=== PATIENT | female | born 1955 | race Caucasian/White ===

== ENCOUNTER 2017-05-02 01:28 | Inpatient (IN) | payer MEDICAID ==
[2017-05-02] MEDS ORDERED: methylPREDNISolone SOD SUCC 125 MG/2 ML VIAL IVP ONE (01:34)
[2017-05-02] MEDS ORDERED: NS 500 ML IV ONE (01:34)
[2017-05-02] MEDS ORDERED: IPRATROPIUM/ALBUTEROL 3 ML DEYVIAL IH ONE (01:34)
--- NOTE | 2017-05-02 01:38 | EDPHY ---
H & P HPI/ROS: HPI CHIEF COMPLAINT: Shortness of breath, anxiety HISTORY OF PRESENT ILLNESS: Patient is a 62-year-old female, she resides at [facility], she presents emergency room by EMS for shortness of breath. EMS reports when they arrived to [facility] to evaluate her her room air saturation was in the low 80s. She was tachypneic and wheezing and had rhonchorous breath sounds. She was placed on 4 L nasal cannula as well as receiving a 6 L DuoNeb and her O2 sat came to 92%. Upon arrival to the emergency room she is in respiratory distress with tachypnea , her room air saturation is 68% she does complain of shortness of breath, anxiety and chest discomfort. Of note she does arrive from [facility] the DNR. Past Medical History: COPD 2 L nasal cannula at baseline, anxiety, CVA, obesity Past Surgical History: No recent surgery. Social History: Resides at [facility]. She denies current use of tobacco drugs or alcohol. Family History: Noncontributory ROS REVIEW OF SYSTEMS: A comprehensive 10 point review of systems is otherwise negative aside from elements mentioned in the history of present illness. Exam Constitutional respiratory distress, obese, triage nursing summary reviewed, vital signs reviewed, awake/alert. Initial room air saturation 60%. Eyes normal conjunctivae and sclera, EOMI, PERRLA. HENT normal inspection, atraumatic, moist mucus membranes, no epistaxis, neck supple/ no meningismus, no raccoon eyes. Respiratory respiratory distress, tachypnea, kidney in the 30s. decreased breath sounds bilaterally, audible wheezing bilaterally Cardiovascular tachycardia , regular rhythm, no murmur, no edema, distal pulses normal. Gastrointestinal soft, non-tender, no rebound, no guarding, normal bowel sounds, no distension, no pulsatile mass. Genitourinary no CVA tenderness. Musculoskeletal no midline vertebral tenderness, full range of motion, no calf swelling, no tenderness of extremities, no meningismus, good pulses, neurovascularly intact. Skin pink, warm, & dry, no rash, skin atraumatic. Neurologic awake, alert and oriented x 3, AAOx3, moves all 4 extremities equally, motor intact, sensory intact, CN II-XII intact, normal cerebellar, normal vision, normal speech. Psychiatric normal mood/affect. Heme/Lymph/Immune no lymphadenopathy. 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 Re-evaluate. Blood cultures. Lactic acid. Re-evaluation: 0223: Patient is feeling much better after DuoNeb breathing treatment. She remains on oxygen at 4-5 L nasal cannula. She is tearful. She denies chest pain. It is noted her D-dimer is positive. In the setting of profound hypoxia 60% room air saturation with positive D-dimer will proceed with CT angiogram of her chest her creatinine is normal. Reason for CT angiogram of her chest rule out pulmonary embolism. However clinically most likely having a COPD exacerbation. She has received IV Levaquin, IV steroids, DuoNeb breathing treatment. She will be admitted to the hospitalist service for COPD exacerbation. 0226AM: I did re-evaluate her she is no longer in respiratory distress she is anxious but resting. I do feel that she is safe for admission to PCU. Spoke with Dr. Alfaro who agrees to admit this patient. Final diagnosis COPD exacerbation. 0323AM: This patient's CT angiogram of the chest shows no pulmonary embolism however there is patchy pneumonia, bronchial wall thickening consistent with bronchitis, and additionally in the right lung possible fungal infection. Will relate the CT scan findings to the hospitalist service. Patient did receive blood cultures here and IV Levaquin. She is afebrile. But profoundly hypoxic off oxygen. 0332: Additionally Dr. Boo Ray updated me about the patient CT angiogram when the scan through a little bit into the abdomen they can see adrenal masses and possibly a mass on her right liver. Recommend CT abdomen pelvis inpatient. Do not recommend a CT scan abdomen pelvis with contrast at this time after the CT angiogram wait until she clears the contrast and then in the hospital get CT abdomen pelvis IV contrast. I have updated the hospitalist service. Source: Patient, EMS Constitutional: Initial Vital Signs O2 Sat (%) 95 05/02/17 01:35 O2 Delivery Mode Nasal Cannula O2 (L/minute) 5 Allergies/Adverse Reactions: heparin Allergy (Verified 05/02/17 01:39) Home Medications: Medication Instructions Recorded Acetaminophen [Tylenol ES 500 mg 1,000 mg PO Q8H PRN 05/02/17 (*)] Atorvastatin Calcium [Lipitor 20 20 mg PO DAILY 05/02/17 mg (*)] Budesonide [Budesonide 0.5MG/2Ml 0.5 mg IH BID 05/02/17 Neb (*)] Clopidogrel Bisulfate [Plavix (*)] 75 mg PO DAILY 05/02/17 Escitalopram Oxalate [Lexapro] 20 mg PO DAILY 05/02/17 Formoterol Fumarate 05/02/17 Hydrocodone/Acetaminophen [[place] 1 each PO Q4 PRN 05/02/17 5/325 (*)] Ipratropium/Albuterol [Duoneb (*)] 3 ml IH Q4H PRN 05/02/17 Ipratropium/Albuterol [Duoneb (*)] 3 ml IH Q6H 05/02/17 LORazepam [Ativan (*)] 0.5 mg PO BID 05/02/17 LORazepam [Ativan (*)] 0.5 mg PO BID PRN 05/02/17 LORazepam [Ativan (*)] 0.5 mg PO DAILY 05/02/17 Miconazole Nitrate [Zeasorb-AF 1 aretha TP BID 05/02/17 Powder] Nicotine [Nicoderm Cq 14 mg (*)] 14 mg TD DAILY 05/02/17 Ondansetron Odt [Zofran Odt 4 mg 4 mg PO Q4H PRN 05/02/17 (*)] Perforomist 2 ml NEB BID 05/02/17 Potassium Chloride [Klor-Con M20] 20 meq PO DAILY 05/02/17 Rivaroxaban [Xarelto 10mg (*)] 10 mg PO DAILY 05/02/17 fentaNYL [Duragesic 25 MCG Patch 25 mcg TD Q72H 05/02/17 (*)] Medical Decision Making - Diagnostics Imaging Results: Imaging Impressions Chest/Thorax CTA 05/02/17 02:21 Impression: 1. No evidence of thrombopulmonary embolic disease. 2. Severe underlying bronchitis. Bronchial plugging in the right lower lobe. 3. Low-attenuation branching tubular abnormality in the right lower lobe. This could be secondary to allergic bronchopulmonary aspergillosis, although typical findings of underlying bronchiectasis are not visualized. Another differential consideration could be bronchial atresia. Low-attenuation mass cannot be excluded, therefore, recommend a short-term follow up and pulmonary consultation. Right hilar and subcarinal lymphadenopathy. 4. Right upper lobe and left lower lobe pneumonia. 5. Mild cardiomegaly. Mild pericardial effusion. 6. Enlarged bilateral adrenal glands. 7. 2.7 cm mass at the inferior posterior margin of the liver of unknown etiology , incompletely imaged. Recommend dedicated CT of the abdomen and pelvis for further evaluation. Results called and discussed with Luis Alberto Ladd MD, on 05/02/2017 0334 hours. Final interpretation concurs with initial preliminary medical cost consultant radiologist impression. - Data Points Laboratory Results: Laboratory Results 05/02/17 01:25 05/02/17 01:25 Microbiology Results: MICROBIOLOGY 05/02/17 01:48 Nasal, Sinus - Swab Respiratory Panel (PCR) - Final No Organism Detected Medications Given: Acetaminophen (Tylenol) 1,000 mg PO Q8H PRN PRN Reason: Pain, Mild Stop: 10/29/17 14:19 Last Admin: 05/02/17 19:04 Dose: 1,000 mg Albuterol/Ipratropium (Duoneb) 3 ml IH QID SILAS Stop: 10/29/17 05:59 Last Admin: 05/02/17 19:48 Dose: 3 ml Budesonide (Budesonide 0.5mg/2ml Neb) 0.5 mg IH BID SILAS Stop: 10/29/17 20:59 Last Admin: 05/02/17 19:48 Dose: 0.5 mg Guaifenesin (Mucinex) 1,200 mg PO BID SILAS Stop: 10/29/17 20:59 Last Admin: 05/02/17 19:02 Dose: 1,200 mg Sodium Chloride (Ns) 1,000 mls @ 75 mls/hr IV CONT SILAS Stop: 10/29/17 03:14 Last Admin: 05/02/17 04:58 Dose: 1,000 mls Lorazepam (Ativan) 0.5 mg PO BID PRN PRN Reason: Anxiety Stop: 10/29/17 14:19 Last Admin: 05/02/17 19:13 Dose: 0.5 mg Nystatin (Mycostatin Powder) 1 aretha TP TID SILAS Stop: 06/01/17 15:59 Last Admin: 05/02/17 20:32 Dose: Not Given Discontinued Medications Albuterol/Ipratropium (Duoneb) 3 ml IH EDNOW ONE Stop: 05/02/17 01:35 Last Admin: 05/02/17 01:39 Dose: 3 ml Fentanyl (Duragesic) 25 mcg TD Q72H SILAS Stop: 05/12/17 14:29 Last Admin: 05/02/17 15:03 Dose: Not Given Sodium Chloride (Ns) 500 mls @ 1,000 mls/hr IV EDNOW ONE PRN Reason: Protocol Stop: 05/02/17 02:03 Last Admin: 05/02/17 02:25 Dose: 500 mls Levofloxacin/Dextrose (Levaquin 750 Mg (Premix)) 150 mls @ 100 mls/hr IV EDNOW ONE PRN Reason: Protocol Stop: 05/02/17 03:08 Last Admin: 05/02/17 02:34 Dose: 150 mls Methylprednisolone Sodium Succinate (Solu-Medrol) 125 mg IVP EDNOW ONE Stop: 05/02/17 01:35 Last Admin: 05/02/17 01:40 Dose: 125 mg Potassium Chloride (Klor-Con) 10 - 40 meq PO ONCE ONE PRN Reason: Protocol Stop: 05/02/17 12:53 Last Admin: 05/02/17 13:08 Dose: 30 meq Departure - Departure Disposition: [facility] Inpatient Acute Clinical Impression: Hypoxia, COPD exacerbation, Adrenal mass Pneumonia Qualifiers: Pneumonia type: due to unspecified organism Laterality: bilateral Lung location : lower lobe of lung Qualified Code(s): J18.9 - Pneumonia, unspecified organism Condition: Serious
[2017-05-02 01:52] LABS: % IMMATURE GRANULYOCYTES 0.5 % (0.0-1.1); ABSOLUTE IMMATURE GRANULOCYTES 0.08 10^3/uL (0.00-0.10); ADD DIFF? NO; HEMATOCRIT 40.4 % (38.0-47.0); HEMOGLOBIN 12.5 g/dL (12.6-16.3); MEAN CELL HEMOGLOBIN 27.6 pg (27.9-34.1); MEAN CELL HEMOGLOBIN CONCENTR. 30.9 g/dL (32.4-36.7); MEAN CELL VOLUME 89.2 fL (81.5-99.8); MEAN PLATELET VOLUME 10.3 fL (8.7-11.7); PLATELET COUNT 230 10^3/uL (150-400); RED BLOOD CELL COUNT 4.53 10^6/uL (4.18-5.33)
[2017-05-02 01:53] LABS: ADD MORPH? YES; ADD SCAN? NO; ATYPICAL LYMPHOCYTE FLAG 10 (0-99); FRAGMENT RBC FLAG 40 (0-99); LEFT SHIFT FLG 10 (0-99); LIPEMIA HEMOLYSIS FLAG 80 (0-99); PLATELET CLUMPS FLAG 20 (0-99)
[2017-05-02 01:54] LABS: RED CELL DISTRIBUTION WIDTH 25.8 % (11.5-15.2)
--- NOTE | 2017-05-02 01:55 | CPEKG ---
Heart Rate: 111 RR Interval: 541 P-R Interval: 140 QRSD Interval: 106 QT Interval: 332 QTC Interval: 451 P [place]: 50 QRS [place]: -30 T Wave [place]: -43 EKG Severity - ABNORMAL ECG - EKG Impression: SINUS TACHYCARDIA EKG Impression: MULTIFORM VENTRICULAR PREMATURE COMPLEXES EKG Impression: INCOMPLETE RIGHT BUNDLE BRANCH BLOCK EKG Impression: INFERIOR INFARCT, AGE INDETERMINATE Electronically Signed By: Luis Alberto Ladd 02-May-2017 07:09:57
[2017-05-02 01:59] LABS: BASE EXCESS 4.5 mEq/L (-2.5-2.5); BICARBONATE 30 mEq/L (22-26); MEASURED OXYGEN SATURATION 70 % (92-95); PCO2 53 mmHg (34-38); PO2 43 mmHg (65-75); TCO2 32 mEq/L (23-27)
[2017-05-02 02:03] LABS: INR 2.04 (0.83-1.16); PROTIME(PATIENT) 23.2 SEC (12.0-15.0)
[2017-05-02 02:04] LABS: APTT 35.3 SEC (23.0-38.0)
[2017-05-02 02:13] LABS: ALANINE AMINOTRANSFERASE 31 IU/L (9-52); ALBUMIN 3.5 g/dL (3.5-5.0); ALKALINE PHOSPHATASE 63 IU/L (38-126); ANION GAP 11 mEq/L (8-16); ASPARTATE AMINOTRANSFERASE 26 IU/L (14-46); BILIRUBIN,TOTAL 1.1 mg/dL (0.1-1.4); BILIRUBIN-CONJUGATED 0.4 mg/dL (0.0-0.5); BILIRUBIN-UNCONJUGATED 0.7 mg/dL (0.0-1.1); CARBON DIOXIDE 32 mEq/l (22-31); CHLORIDE 104 mEq/L (97-110); CREATININE 0.8 mg/dL (0.6-1.0); GLOMERULAR FILTRATION RATE > 60; GLUCOSE 113 mg/dL (70-100); POTASSIUM 3.3 mEq/L (3.5-5.2); SODIUM 147 mEq/L (134-144); TOTAL PROTEIN 6.5 g/dL (6.3-8.2)
[2017-05-02 02:24] LABS: TROPONIN I 0.049 ng/mL (0.000-0.034)
[2017-05-02 02:27] LABS: HYPOCHROMIA 1+; MACROCYTES 1+; MICROCYTES 2+
[2017-05-02 02:28] LABS: PLATELET ESTIMATE ADEQUATE (ADEQ)
[2017-05-02] MEDS ORDERED: IOPAMIDOL (ISOVUE 370) 100 ML BTL IV ONE (02:35)
[2017-05-02] MEDS ORDERED: LORazepam 0.5 MG TAB PO PRN (03:06)
[2017-05-02] MEDS ORDERED: ONDANSETRON 4 MG/2 ML VIAL IVP PRN (03:06)
[2017-05-02] MEDS ORDERED: ACETAMINOPHEN 325 MG TAB PO PRN (03:06)
[2017-05-02] MEDS ORDERED: HYDROCODONE/APAP 5/325 TAB PO PRN ×2 (03:06→14:20)
[2017-05-02] MEDS ORDERED: ALBUTEROL 3 ML DEYVIAL IH PRN (03:06)
[2017-05-02] MEDS: NS 1,000 ML IV SCH (04:58)
[2017-05-02] MEDS ORDERED: LORazepam 2 MG/ML INJ IVP PRN (05:22)
[2017-05-02] MEDS: IPRATROPIUM/ALBUTEROL 3 ML DEYVIAL IH SCH ×4 (06:02→19:48)
[2017-05-02 06:25] LABS: % IMMATURE GRANULYOCYTES 0.6 % (0.0-1.1); ABSOLUTE IMMATURE GRANULOCYTES 0.09 10^3/uL (0.00-0.10); ADD DIFF? NO; ADD MORPH? YES; ADD SCAN? NO; ATYPICAL LYMPHOCYTE FLAG 0 (0-99); FRAGMENT RBC FLAG 40 (0-99); HEMATOCRIT 39.5 % (38.0-47.0); HEMOGLOBIN 12.2 g/dL (12.6-16.3); LEFT SHIFT FLG 0 (0-99); LIPEMIA HEMOLYSIS FLAG 80 (0-99); MEAN CELL HEMOGLOBIN 27.5 pg (27.9-34.1); MEAN CELL HEMOGLOBIN CONCENTR. 30.9 g/dL (32.4-36.7); MEAN CELL VOLUME 89.2 fL (81.5-99.8); MEAN PLATELET VOLUME 10.2 fL (8.7-11.7); PLATELET CLUMPS FLAG 10 (0-99); PLATELET COUNT 208 10^3/uL (150-400); RED BLOOD CELL COUNT 4.43 10^6/uL (4.18-5.33)
[2017-05-02 06:28] LABS: RED CELL DISTRIBUTION WIDTH 25.4 % (11.5-15.2)
[2017-05-02 07:04] LABS: ANION GAP 10 mEq/L (8-16); CALCIUM 8.8 mg/dL (8.5-10.4); CARBON DIOXIDE 31 mEq/l (22-31); CHLORIDE 104 mEq/L (97-110); CREATININE 0.7 mg/dL (0.6-1.0); GLOMERULAR FILTRATION RATE > 60; GLUCOSE 124 mg/dL (70-100); POTASSIUM 3.3 mEq/L (3.5-5.2); SODIUM 145 mEq/L (134-144)
[2017-05-02 07:09] LABS: HYPOCHROMIA 1+; MACROCYTES 1+; MICROCYTES 2+; PLATELET ESTIMATE ADEQUATE (ADEQ); STOMATOCYTES 1+
--- NOTE | 2017-05-02 09:11 | GHP ---
[f rep st] HISTORY AND PHYSICAL DATE OF ADMISSION: 05/02/2017 HISTORY OF PRESENT ILLNESS: This is a very pleasant 62-year-old female with past medical history sig nificant for advanced COPD with chronic respiratory failure on 2 L by nasal cannula at baseline. Als o with history of anxiety, depression, recent CVA noted on imaging completed at [place] 1 month ago. Also, patient with history of IA and coronary artery disease that was not amenable to intervention sometime at the end of February or March. Also, patient with a recent diagnosis of metastatic can cer of unknown etiology. The patient reports the last several days she has been having subjective fe vers and sweats. No chills. She states that she has been having increasing cough with some blood or pink-tinged sputum but primarily green in color. She also endorses some nausea, vomiting, and diarr hea for the past 3-4 days. She states she is up to date on her flu and Pneumovax. The patient was r ecently hospitalized in [place] for IA. She did undergo cardiac cath; that was not amenable to inte rvention. Medical management was recommended. Additionally, patient was found to have metastatic di sease in her lungs at that time, with plans for outpatient followup once the patient stabilized. The patient reports that she had been staying at [facility]. She is quite anxious and repeats multiple times that she just wants to go home and does not want to go back. REVIEW OF SYSTEMS: CONSTITUTIONAL: Positive for fevers and sweats. No chills. SKIN: Patient denie s any rashes or sores. ENT: Patient reports feeling nasal congestion and being tearful. EYES: No changes in vision. Does wear glasses. CV: Does report bilateral pleuritic chest pain, worse with i nspiration and cough. She also endorses increased lower extremity edema from her hospitalization cresencio t son states is actually improving. RESPIRATORY: See HPI. GI: Patient with nausea, vomiting, diar harvinder. She denies any melena or hematochezia. : No dysuria, but has noted some clots and pink-tin ged urine. MUSCULOSKELETAL: The patient complains of upper thoracic bone pain. NEURO: Patient den ies any numbness, tingling. PSYCH: Patient denies any anxiety, but has stated she has been depresse d since having been transferred to SNF and is tearful. ALLERGIES: Heparin. HOME MEDICATIONS: As available per EMR: Zofran, rivaroxaban, Plavix, [place], NicoDerm, miconazole, L ipitor, Lexapro, Klor-Con, formoterol, fentanyl, DuoNeb, and budesonide. PAST MEDICAL HISTORY: Significant for COPD and chronic respiratory failure with hypoxia on 2 L by na sheryl cannula at baseline, anxiety, depression, history of CVA noted on imaging at another facility, mo rbid obesity (current BMI, however, is 36.5), chronic pain, history of IA and CAD in latter part of S or early March of this year. Metastatic cancer of unknown source. PAST SURGICAL HISTORY: Patient reports cardiac cath. FAMILY HISTORY: The patient's father had cancer that was metastatic, was suspected to be lung. Both grandparents with diabetes type 2, coronary artery disease, a sister with obesity, and her younger s ister with history of alcoholism and diabetes type 2. SOCIAL HISTORY: Patient currently residing in [facility]. She does not smoke, drink, or do drugs cu rrently. She has a history of rare alcohol. The patient has a remote history of tobacco use, quitti que 1.5 months ago and has approximately 40 or slightly less pack-year history. CODE STATUS: DNI. Cardiac resuscitation is limited. Patient does not want any compressions, but am enable to defibrillation and IV medications if needed. Her son to be proxy if needed. PHYSICAL EXAMINATION: VITAL SIGNS: Upon arrival to the emergency department, blood pressure is 133/ 102. Heart rate is 100, respiratory rate 28, O2 saturation 75% on room air with a temperature of 37. 4 per report. On arrival to patient's facility, EMS had patient with saturating in the 60s. VITALS: At time of interview, blood pressure is 138/73. Heart rate is 82, respiratory rate 18, and O2 satu ration is 92% on 5 L by nasal cannula. GENERAL: No acute distress, pleasant, obese female, is lying quietly in bed, appears chronically ill, frail. Son is at bedside. HEAD: Normocephalic, atraumati c. EYES: Extraocular muscles are intact. Pupils equal, round, reactive to light bilaterally and symmet win. No scleral icterus or conjunctival injection. ENT: Mucous membranes appear dry. She does hav e a little bit of thrush present on her tongue. No oropharyngeal erythema or exudates. NECK: Suppl e. Trachea midline. CV: Regular rate and rhythm, slightly distant heart sounds secondary to body h abitus. No murmurs, rubs, or gallops appreciated. RESPIRATORY: Minimally labored breathing that is coarse diffusely. Patient also with extensive wheezing, but again, not in acute distress. ABDOMEN: Obese, soft, nontender to palpation. No rebound, guarding, or masses appreciated. Positive bowel sounds. : No suprapubic tenderness to palpation. No Chow catheter in place. MUSCULOSKELETAL: The patient complains of diffuse joint pain, particularly in the thorax. NEURO: Cranial nerves 2-12 are intact, symmetric bilaterally. Patient with generalized weakness diffusely. No focal deficits, but overall strength is quite poor. Son is at bedside. Patient is able to sit up independently wit h only holding onto 1 bed rail. PSYCH: Patient is quite tearful and anxious. She does ask appropri ate questions. She is awake, alert, and oriented x3. LABORATORY STUDIES: WBC 15.6, 12.5, 40.4, MCV of 89.2. Platelet count is 230. Neutrophil count 78.0 . No bands. PT is 23.2. INR is 2.04. PTT is 35.5. D-dimer is 0.8. ABG, pH is 7.37, pCO2 53, pO2 is 43. Bicarb is 30. O2 saturation 70% with a base excess of 4.5. Sodium is 147, potassium 3.3, chloride 104. CO2 is 32, anion gap 11, BUN 18, creatinine is 0.8, GFR greater than 60, glucose 113, calcium 9.0. Total bilirubin 1.1, ALT 31, AST is 26. Alkaline phosphat ase is 63. Troponin 0.049. BTNP is 5470. Total protein is 6.5 and 3.5. Chest x-ray: Image report reviewed, showing compensated CHF, suspect bilateral lower lobe masses, ea rly right upper lobe infiltrate, pneumonia versus localized edema. EKG showing sinus tachycardia in the 100s, PVCs, incomplete right bundle-branch and Q-waves in the inferior leads. CTA of the chest, abdomen, and pelvis negative for PE. Preliminary report is available. Severe bron chitis, mucous plugging, finger in glove density, left lower lobe. Question allergic bronchopulmonar y aspergillosis pneumonia, right upper lobe and left lower. Mild pericardial effusion, right perihil ar lymph node, adrenal hypertrophy, mass close to inferior margin of liver that is incompletely seen, unsure etiology. ASSESSMENT AND PLAN: Pleasant 62-year-old female with past medical history significant for chronic o bstructive pulmonary disease, coronary artery disease with a recent myocardial infarction, generalize d weakness, metastatic cancer of unknown etiology, who presents with complaints of acute on chronic r espiratory distress. 1. Acute on chronic respiratory failure with hypoxia. Patient improved status post steroids, nebs, and increased supplemental oxygen. She has bilateral pneumonia, as well as masses present. No PE is appreciated. She has been started on Levaquin in the emergency department, concern for possible asp ergillosis. Will consult Infectious Disease. The patient's lactate is 1.6. She initially presented qualifying for systemic inflammatory response syndrome criteria. However, this is significantly imp roved, and patient appears to have improved. 2. Chronic obstructive pulmonary disease with exacerbation. Nebs, steroids and oxygen as above. Re spiratory status is improving. 3. Pneumonia, bilateral. The patient has been started on Levaquin. At this time, clinically appear s to have been improved. She has no history of methicillin-resistant Staphylococcus aureus, so will hold off on any vancomycin. Infectious Disease consulted to assist with management appreciated. 4. Coronary artery disease with recent myocardial infarction that is not amenable to medical interve ntion. Patient without any current chest pain, consistent with cardiac etiology. She is complaining of bilateral pleuritic-type chest pain. Troponin is minimally elevated, but suspect this is likely due to demand ischemia with a history of O2 sats in the 60s. We will plan to repeat a troponin. 5. Hypokalemia. Replacement has been ordered. 6. Metastatic disease, possibility for lung cancer. However, patient has not been stable enough for outpatient evaluation. She did have studies completed at [place] for her previous hospitalization and will try to obtain records. 7. Anxiety is pretty significant. Patient is very tearful, depressed, and fearful that she is going to be going back to her shelter facility. Ativan will be available p.r.n. 8. Chronic pain. Continue with patient's fentanyl patch. Remainder as per provider. 9. Debility. PT/OT has been consulted. Encourage mobilization. 10. Morbid obesity, with a body mass index of 36.5. Mobilize, dietary changes. 11. Fluid, electrolytes, nutrition: Continue with IV fluids overnight. Monitor for fluid status wi th likely history of congestive heart failure. Electrolyte replacement as above. Dietary, cardiac c onsult. 12. Code status: Patient is a limited code. She does not want to be intubated. She does not want any compressions, but she is amenable to defibrillation and IV medications if needed. Desires son to act as proxy if needed. 13. Disposition: Patient admitted to inpatient status given the severity of her respiratory distres s or bilateral pneumonia, overall debility. She is likely to remain in the hospital for greater than 2 midnights. /[id number]/MODL
--- NOTE | 2017-05-02 09:37 | PDMN ---
Medical Necessity Medical necessity: C/M review: est. > 2 MN LOS for eval and TX of acute on chronic respiratory failure with hypoxia, acute COPD exacerbation, bilateral pneumonia, hypokalemia, generalized weakness and debility, requiring IV Levofloxacin in ED, planned Infectious Disease consult, ongoing cardiac monitoring, pulse oximetry, increased supplemental O2, Duonebs, IV fluids, acute inpt PT/OT, comorbid CAD with recent PR not amenable to medical intervention, metastatic disease, possibly for lung cancer, significant anxiety , morbid obesity, chronic pain per H/P.
[2017-05-02] MEDS ORDERED: PROTOCOL POTASSIUM 1 DOSE MISC PRN (12:27)
[2017-05-02] MEDS ORDERED: POTASSIUM CL 10 MEQ TAB PO ONE (12:52)
[2017-05-02] MEDS ORDERED: fentaNYL 25 MCG PATCH TD SCH (14:30)
--- NOTE | 2017-05-02 14:45 | HOSPPROG ---
Hospitalist Progress Note Assessment/Plan: # acute hypoxic resp failure - treat abx, steroids, BDs, mucinex # recent diagnosis of cancer, suspected stage IV lung - patient had a hospice eval scheduled for Thursday - will ask for an inpatient eval # CAP = cont treatment with levquin # ?ABPA - will defer further w/u pending goals of care clarification # anxiety/depression - cont ativan prn # CAD, recent CA not amenable to intervention - cont plavix, start asa, hold low dose xarelto, cont statin # pain control - fentanyl patch, norco # morbid obesity # dvt ppx - stop xarelto, start lovenox # limited code # dispo - patient refusing to return to [facility]; CM involved 35 minutes of direct face to face patient care time spent Objective: Vital Signs Temp Pulse Resp BP Pulse Ox 36.9 C 92 14 135/93 H 90 L 05/02/17 12:00 05/02/17 12:00 05/02/17 12:00 05/02/17 12:00 05/02/17 12:00 Laboratory Results 05/02/17 06:05 05/02/17 06:05 05/01/17 05/02/17 05/03/17 05:59 05:59 05:59 Intake Total 710 Balance 710 PT 23.2 SEC (12.0-15.0) H 05/02/17 01:25 INR 2.04 (0.83-1.16) H 05/02/17 01:25 ICD10 Worksheet Patient Problems: Problems Problem Status Onset Hypoxia Acute COPD exacerbation Acute Pneumonia Acute Adrenal mass Acute
--- NOTE | 2017-05-02 15:55 | ASMTCMCOM ---
CM Note CM Note Notes: Pt admitted from [facility] and told MD that she does not want to return there. Pt also had appt with [facility] hospice on Thursday at [facility]. Bartolome asked that appt be changed to [facility]. Call placed and they will reach out to case mgmt on Thursday. Attempted to discuss DC options with pt who stated it was not a good time and she did not want family contacted yet either. C/M will continue to follow. Date Signed: 05/02/2017 03:55 PM Electronically Signed By:Padma Allan LCSW
[2017-05-02] MEDS: NYSTATIN POWDER 15 GM BTL TP SCH ×2 (17:01→20:32)
[2017-05-02 18:12] LABS: POTASSIUM 3.8 mEq/L (3.5-5.2)
[2017-05-02] MEDS ORDERED: guaiFENesin 600 MG TAB.ER PO ONE (18:59)
[2017-05-02] MEDS: guaiFENesin 600 MG TAB.ER PO SCH (19:02)
[2017-05-02] MEDS: ACETAMINOPHEN 500 MG TAB PO PRN (19:04)
[2017-05-02] MEDS: LORazepam 0.5 MG TAB PO PRN (19:13)
[2017-05-02] MEDS: BUDESONIDE 0.5 MG/2 ML AMPUL.NEB IH SCH (19:48)
[2017-05-02] MEDS ORDERED: MICONAZOLE NITRATE TP SCH (21:00)
[2017-05-02] MEDS ORDERED: FORMOTEROL NEB SCH (21:00)
[2017-05-03] MEDS: IPRATROPIUM/ALBUTEROL 3 ML DEYVIAL IH SCH ×4 (05:43→21:19)
[2017-05-03] MEDS: NS 1,000 ML IV SCH (05:50)
[2017-05-03 06:13] LABS: % IMMATURE GRANULYOCYTES 0.5 % (0.0-1.1); ABSOLUTE IMMATURE GRANULOCYTES 0.05 10^3/uL (0.00-0.10); ADD DIFF? NO; ADD MORPH? YES; ADD SCAN? NO; ATYPICAL LYMPHOCYTE FLAG 20 (0-99); FRAGMENT RBC FLAG 40 (0-99); HEMATOCRIT 37.9 % (38.0-47.0); HEMOGLOBIN 11.1 g/dL (12.6-16.3); LEFT SHIFT FLG 0 (0-99); LIPEMIA HEMOLYSIS FLAG 70 (0-99); MEAN CELL HEMOGLOBIN 26.7 pg (27.9-34.1); MEAN CELL HEMOGLOBIN CONCENTR. 29.3 g/dL (32.4-36.7); MEAN CELL VOLUME 91.3 fL (81.5-99.8); MEAN PLATELET VOLUME 10.6 fL (8.7-11.7); PLATELET CLUMPS FLAG 0 (0-99); PLATELET COUNT 212 10^3/uL (150-400); RED BLOOD CELL COUNT 4.15 10^6/uL (4.18-5.33)
[2017-05-03 06:15] LABS: RED CELL DISTRIBUTION WIDTH 25.3 % (11.5-15.2)
[2017-05-03 06:34] LABS: ANION GAP 7 mEq/L (8-16); CALCIUM 9.4 mg/dL (8.5-10.4); CARBON DIOXIDE 35 mEq/l (22-31); CHLORIDE 106 mEq/L (97-110); CREATININE 0.7 mg/dL (0.6-1.0); GLOMERULAR FILTRATION RATE > 60; GLUCOSE 99 mg/dL (70-100); POTASSIUM 3.7 mEq/L (3.5-5.2); SODIUM 148 mEq/L (134-144)
[2017-05-03 06:55] LABS: HYPOCHROMIA 1+; MACROCYTES 1+; MICROCYTES 1+; PLATELET ESTIMATE ADEQUATE (ADEQ); POLYCHROMASIA 1+
[2017-05-03] MEDS: ACETAMINOPHEN 500 MG TAB PO PRN (08:47)
[2017-05-03] MEDS: ENOXAPARIN 40 MG/0.4 ML SYR SC SCH (08:48)
[2017-05-03] MEDS: NYSTATIN POWDER 15 GM BTL TP SCH ×3 (08:48→20:59)
[2017-05-03] MEDS: guaiFENesin 600 MG TAB.ER PO SCH ×2 (08:49→20:57)
[2017-05-03] MEDS: LORazepam 0.5 MG TAB PO SCH (08:49)
[2017-05-03] MEDS: predniSONE 20 MG TAB PO SCH (08:49)
[2017-05-03] MEDS: ESCITALOPRAM OXALATE 10 MG TAB PO SCH (08:49)
[2017-05-03] MEDS: POTASSIUM CL 20 MEQ TAB PO SCH (08:49)
[2017-05-03] MEDS: CLOPIDOGREL BISULFATE 75 MG TAB PO SCH (08:49)
[2017-05-03] MEDS: ATORVASTATIN CALCIUM 20 MG TAB PO SCH (08:50)
[2017-05-03] MEDS ORDERED: ASPIRIN 81 MG CHEWABLE TAB PO SCH (09:00)
[2017-05-03] MEDS ORDERED: NON-FORMULARY NEW DRUG (Escitalopram Oxalate [Lexapro] 20 MG) PO SCH (09:00)
[2017-05-03] MEDS: NICOTINE 14 MG/24 HR PATCH TD SCH (09:02)
[2017-05-03] MEDS ORDERED: POTASSIUM CL 10 MEQ TAB PO ONE ×2 (09:07→19:54)
[2017-05-03] MEDS: BUDESONIDE 0.5 MG/2 ML AMPUL.NEB IH SCH ×2 (10:14→21:22)
[2017-05-03] MEDS ORDERED: IOPAMIDOL (ISOVUE-300) 100 ML BTL ONE (12:15)
--- NOTE | 2017-05-03 12:27 | GCON ---
[f rep st] CONSULTATION ADMINISTRATIVE SERVICES COORDINATOR CONSULTATION REASON FOR CONSULTATION: Lung mass. HISTORY OF PRESENT ILLNESS: Ms. Lea is a very pleasant 62-year-old white female with a past [facility] history of chronic obstructive pulmonary disease for which she is on home oxygen at 2 L, obesity, chronic pain, and coronary artery disease with history of myocardial infarction. She was admitted f [facility] with increasing breathlessness. A CT scan performed at [facility] revealed possi ble lung mass. She was sent to [facility] with the possibility of hospice. No biopsy had been perfor med. In discussion with the patient, she states that she feels somewhat better since admission. She is less breathless. She admits to a cough that is nonproductive. There is no chest pain, pleuritic- type chest pain, or angina. No fever, no night sweats. PAST MEDICAL HISTORY: Significant for chronic obstructive pulmonary disease, coronary artery disease , history of myocardial infarction, obesity, stroke, anxiety, and depression. PAST SURGICAL HISTORY: She has had a cardiac catheterization. ALLERGIES: Heparin. SOCIAL HISTORY: She has a 40+ pack year smoking history and quit 1 month ago. She denies any alcoho l use. She is single with 1 child who is in the room. She most recently resides at [facility]. PHYSICAL EXAMINATION: VITAL SIGNS: Blood pressure is 135/84, pulse 88, respirations 16, temperature 36.8, oxygen saturations 97% on 4 L. GENERAL: She is a morbidly obese but very pleasant 62-year-ol d white female who is resting comfortably on nasal cannula oxygen. HEENT: Eyes MARY, EOMI. Throat s hows no erythema or tonsillar hypertrophy. NECK: Supple. There is no cervical adenopathy. HEART: Regular rate and rhythm without murmurs, rubs or gallops. LUNGS: Diffuse wheezes in all lung field s. ABDOMEN: Soft, nontender. Bowel sounds are present. EXTREMITIES: No clubbing, cyanosis, or ed filippo. LABORATORIES: White count is 10.6, hemoglobin 11, hematocrit 37, platelet count 212, sodium 148, pot assium 3.7, chloride 106, CO2 is 35, BUN 22, creatinine 0.7, glucose is 99. Influenza A and B are ne gative. RADIOLOGIC STUDIES: CT scan of the chest reveals severe peribronchial thickening. There was mucus p lugging in the right lower lobe. There are low attenuated tubular densities branching in the right l ower lobe. There are areas of opacifications in the left lower lobe and the right upper lobe. There is an enlarged right lymph node. There is a 2.7 cm mass in the inferior posterior margin of the ria er. IMPRESSION: 1. Lung mass, etiology of which is unclear. Given the branching nature of this, aspergillosis seems a possibility. Primary lung cancer is also a possibility though this would be an unusual presentatio n. 2. Patchy pneumonia, right upper lobe, right lower lobe. 3. Liver mass. 4. Chronic obstructive pulmonary disease which is oxygen dependent. 5. Obesity. 6. Coronary artery disease. RECOMMENDATIONS: 1. Will schedule the patient for fiberoptic bronchoscopy for tomorrow. 2. I agree with current antibiotic coverage. 3. Agree with current steroids. 4. We will obtain a CT scan of the abdomen and pelvis. 5. Deep venous thrombosis and pulmonary embolus prophylaxis. 6. Stress ulcer prophylaxis. /[id number]/MODL
--- NOTE | 2017-05-03 13:37 | HOSPPROG ---
Hospitalist Progress Note Assessment/Plan: # acute hypoxic resp failure - abx, steroids, BDs, mucinex # lung mass; patient was told had stage IV lung cancer; ddx also includes ABPA - malignancy is not clear to me; agree with plans for bronch by pulm tomorrow - will still consider a hospice evaluation # CAP - cont treatment with levquin # anxiety/depression - cont ativan prn # hyperNa - not polyuric; free H2O today; # CAD, recent [place] not amenable to intervention - cont plavix, start asa, hold low dose xarelto, cont statin # pain control - fentanyl patch, norco # morbid obesity # dvt ppx - stop xarelto, start lovenox # limited code # dispo - patient refusing to return to [facility]; CM involved Subjective: discussed with patient and family; breathing still feels better Objective: Vital Signs Temp Pulse Resp BP Pulse Ox 36.7 C 90 16 141/88 H 93 05/03/17 12:00 05/03/17 12:00 05/03/17 12:00 05/03/17 12:00 05/03/17 12:00 Laboratory Results 05/03/17 06:00 05/03/17 06:00 05/02/17 05/03/17 05/04/17 05:59 05:59 05:59 Intake Total 710 2420 Output Total 850 Balance 710 1570 PT 23.2 SEC (12.0-15.0) H 05/02/17 01:25 INR 2.04 (0.83-1.16) H 05/02/17 01:25 CT personally reviewed with radiology; outside records reviewed discussed with Dr Guzmán - Physical Exam Constitutional: no apparent distress, unkempt Cardiovascular: regular rate and rhythym, no murmur, rub, or gallop Respiratory: no respiratory distress, no rales or rhonchi, inspiratory crackles (mild) Gastrointestinal: normoactive bowel sounds, soft, non-tender abdomen, no palpable masses ICD10 Worksheet Patient Problems: Problems Problem Status Onset Hypoxia Acute COPD exacerbation Acute Pneumonia Acute Adrenal mass Acute
[2017-05-03] MEDS ORDERED: D5W 1,000 ML IV SCH (13:45)
--- NOTE | 2017-05-03 18:03 | ASMTCMCOM ---
CM Note CM Note Notes: Reviewed chart, spoke w/ SALLY Johnson regarding discharge plan, pt's progress. Per Dr. Dan, pt's Stage IV lung ca diagnosis remains unclear at this time; pt to have pulmonary consult and bronch on Thu05/04/17. Met w/ pt and family to discuss discharge plan. Pt adamant that she will not return to [facility]. Attempted to clarify pt's concerns w/ [facility], pt unwilling to discuss. Options for [facility], [place], and [place] in [place] presented. Pt's family is hoping for her to d/c to [place], where they live. Pt not previously open to [place]; asking for other options. Talked at length w/ pt and family about concerns w/ LTC and Medicaid, as well as pending disability application. Met privately w/ pt's son and [id number] - both of whom feel pt was likely "delusional while at [facility]." They report the pt thought the staff at [facility] "was pouring blood all over her food before serving it to her." They believe the pt is not willing to return d/t delusions. Son and dbkeg-wh-sjo [facility] and are willing for her to return there, if she is agreeable. Call placed to Didi at [facility] to discuss options. Didi to inquire about 30 day LTC requirement w/ Medicaid and options for going to a different facility. Didi to also inquire about disability application. Referral sent to [facility], per Didi's request, for updates. Unable to obtain any answers today. Update provided to pt's son Duane . Pt is currently scheduled for a hospice eval w/ [facility] on Thu05/04/17; CM to cancel if necessary, pending discussion w/ . CM will cont to follow. Current Discharge Plan: TBD Date Signed: 05/03/2017 06:03 PM Electronically Signed By:Nidia Olson RN
[2017-05-03 20:29] LABS: POTASSIUM 3.9 mEq/L (3.5-5.2)
[2017-05-03] MEDS: LORazepam 0.5 MG TAB PO PRN (20:57)
[2017-05-04] MEDS: IPRATROPIUM/ALBUTEROL 3 ML DEYVIAL IH SCH ×4 (05:22→20:13)
[2017-05-04 05:41] LABS: ANION GAP 11 mEq/L (8-16); CALCIUM 9.3 mg/dL (8.5-10.4); CARBON DIOXIDE 28 mEq/l (22-31); CHLORIDE 107 mEq/L (97-110); CREATININE 0.6 mg/dL (0.6-1.0); GLOMERULAR FILTRATION RATE > 60; GLUCOSE 90 mg/dL (70-100); POTASSIUM 3.8 mEq/L (3.5-5.2); SODIUM 146 mEq/L (134-144)
[2017-05-04] MEDS: ENOXAPARIN 40 MG/0.4 ML SYR SC SCH (08:18)
[2017-05-04] MEDS: NICOTINE 14 MG/24 HR PATCH TD SCH (08:37)
[2017-05-04] MEDS ORDERED: fentaNYL 25 MCG PATCH TD SCH (09:00)
[2017-05-04] MEDS ORDERED: POTASSIUM CL 10 MEQ TAB PO ONE ×3 (09:10→19:38)
[2017-05-04] MEDS: CLOPIDOGREL BISULFATE 75 MG TAB PO SCH (09:18)
[2017-05-04] MEDS: ATORVASTATIN CALCIUM 20 MG TAB PO SCH (09:18)
[2017-05-04] MEDS: guaiFENesin 600 MG TAB.ER PO SCH ×2 (09:18→21:17)
[2017-05-04] MEDS: LORazepam 0.5 MG TAB PO SCH (09:18)
[2017-05-04] MEDS: ESCITALOPRAM OXALATE 10 MG TAB PO SCH (09:19)
[2017-05-04] MEDS: NYSTATIN POWDER 15 GM BTL TP SCH ×3 (09:21→21:24)
[2017-05-04] MEDS: BUDESONIDE 0.5 MG/2 ML AMPUL.NEB IH SCH ×2 (09:45→20:28)
[2017-05-04] MEDS ORDERED: ALBUTEROL 3 ML DEYVIAL ONE (12:46)
[2017-05-04] MEDS ORDERED: LIDOCAINE 1% 300 MG/30 ML SDV ONE (12:47)
[2017-05-04] MEDS ORDERED: LIDOCAINE 2% JELLY 5 ML TUBE ONE (12:47)
--- NOTE | 2017-05-04 13:24 | HOSPPROG ---
Hospitalist Progress Note Assessment/Plan: # acute hypoxic resp failure - ongoing hypoxia - abx, steroids, BDs, mucinex # likely cancer - exophytic renal mass, 2 liver lesions, vertebral lesions, lung lesion - bronch today # CAP - cont treatment with levquin # anxiety/depression - cont ativan prn # hyperNa - better today # CAD, recent [place] not amenable to intervention - cont plavix, start asa, hold low dose xarelto, cont statin # pain control - fentanyl patch, norco # morbid obesity # dvt ppx - stop xarelto, start lovenox # limited code # dispo - patient refusing to return to [facility]; CM involved Subjective: depressed; discussed her CT scan with her son Objective: Vital Signs Temp Pulse Resp BP Pulse Ox 36.6 C 86 20 131/95 H 92 05/04/17 11:25 05/04/17 11:25 05/04/17 11:25 05/04/17 11:25 05/04/17 11:25 Laboratory Results 05/03/17 06:00 05/04/17 04:50 05/03/17 05/04/17 05/05/17 05:59 05:59 05:59 Intake Total 2420 3000 Output Total 850 Balance 1570 3000 PT 23.2 SEC (12.0-15.0) H 05/02/17 01:25 INR 2.04 (0.83-1.16) H 05/02/17 01:25 - Physical Exam Constitutional: uncomfortable, other (tearful) ICD10 Worksheet Patient Problems: Problems Problem Status Onset Hypoxia Acute COPD exacerbation Acute Pneumonia Acute Adrenal mass Acute
[2017-05-04] MEDS: POTASSIUM CL 20 MEQ TAB PO SCH (14:30)
[2017-05-04] MEDS: predniSONE 20 MG TAB PO SCH (14:31)
--- NOTE | 2017-05-04 14:45 | ASMTCMCOM ---
CM Note CM Note Notes: 05/04/2017 Case Management Note Met w/Didi Huggins and Duc from [facility], pt and pt son Duane. Discussed pt concerns with recent stay at [facility]. [facility] agreed to switch rooms when pt returns. Son Duane expressed concerns re: hallucinations/dellusions that occurred for Mom while at [facility]. Pt states she is having some hallucinations here at [facility] but is able to discern that they are not real whereas at [facility] she was unable to differentiate between reality and hallucinations. Due to Medicaid status, per Didi if pt refuses to return to [facility], pt will be financially responsible for previous stay out of pocket. Didi to inform son and pt of number of days and cost of previous pt stay at [facility]. Requested Behavioral Health Consult and notified RN and MD of pt statements. Left for Annabella Rodriguez. Case Management d/c poc: return to [facility]. Case Management to follow. Date Signed: 05/04/2017 02:45 PM Electronically Signed By:Dara Slaughter RN
--- NOTE | 2017-05-04 16:44 | ASMTCMCOM ---
CM Note CM Note Notes: 05/04/2017 Case Management Note Pt declined bronchoscopy today. Prior to admission, Pt had prescheduled hospice meeting planned for today arranged by [facility]. Bakari from [facility] met with pt and son this afternoon at 1500. Pt requested hospice and Bakari completed all paperwork. Ashvin Brooks to take pt with [facility] support. Case Management to follow. Date Signed: 05/04/2017 04:44 PM Electronically Signed By:Dara Slaughter RN
[2017-05-04 18:49] LABS: POTASSIUM 3.4 mEq/L (3.5-5.2)
[2017-05-04] MEDS: LORazepam 0.5 MG TAB PO PRN (21:17)
[2017-05-05] MEDS: IPRATROPIUM/ALBUTEROL 3 ML DEYVIAL IH SCH ×2 (05:05→09:58)
[2017-05-05] MEDS: ENOXAPARIN 40 MG/0.4 ML SYR SC SCH (09:10)
[2017-05-05] MEDS: predniSONE 20 MG TAB PO SCH (09:11)
[2017-05-05] MEDS: ATORVASTATIN CALCIUM 20 MG TAB PO SCH (09:11)
[2017-05-05] MEDS: CLOPIDOGREL BISULFATE 75 MG TAB PO SCH (09:11)
[2017-05-05] MEDS: LORazepam 0.5 MG TAB PO SCH (09:11)
[2017-05-05] MEDS: guaiFENesin 600 MG TAB.ER PO SCH (09:11)
[2017-05-05] MEDS: POTASSIUM CL 20 MEQ TAB PO SCH (09:11)
[2017-05-05] MEDS: ESCITALOPRAM OXALATE 10 MG TAB PO SCH (09:11)
[2017-05-05] MEDS: NICOTINE 14 MG/24 HR PATCH TD SCH (09:12)
[2017-05-05] MEDS: NYSTATIN POWDER 15 GM BTL TP SCH ×2 (09:12→16:06)
[2017-05-05] MEDS: BUDESONIDE 0.5 MG/2 ML AMPUL.NEB IH SCH (09:58)
--- NOTE | 2017-05-05 12:26 | PDIAF ---
- Diagnosis Diagnosis: pneumonia Code Status: Limited Resuscitation - Medication Management Discharge Medications: Medications to Continue on Transfer Acetaminophen [Tylenol ES 500 mg (*)] 1,000 mg PO Q8H PRN 05/02/17 [Last Taken Unknown] Atorvastatin Calcium [Lipitor 20 mg (*)] 20 mg PO DAILY 05/02/17 [Last Taken Unknown] Budesonide [Budesonide 0.5MG/2Ml Neb (*)] 0.5 mg IH BID 05/02/17 [Last Taken Unknown] Clopidogrel Bisulfate [Plavix (*)] 75 mg PO DAILY 05/02/17 [Last Taken Unknown] Escitalopram Oxalate [Lexapro] 20 mg PO DAILY 05/02/17 [Last Taken Unknown] Formoterol Fumarate 05/02/17 [Last Taken Unknown] Hydrocodone/Acetaminophen [Iliamna 5/325 (*)] 1 each PO Q4 PRN 05/02/17 [Last Taken Unknown] Ipratropium/Albuterol [Duoneb (*)] 3 ml IH Q4H PRN 05/02/17 [Last Taken Unknown] Ipratropium/Albuterol [Duoneb (*)] 3 ml IH Q6H 05/02/17 [Last Taken Unknown] LORazepam [Ativan (*)] 0.5 mg PO BID 05/02/17 [Last Taken Unknown] LORazepam [Ativan (*)] 0.5 mg PO BID PRN 05/02/17 [Last Taken Unknown] LORazepam [Ativan (*)] 0.5 mg PO DAILY 05/02/17 [Last Taken 05/01/17] Miconazole Nitrate [Zeasorb-AF Powder] 1 aretha TP BID 05/02/17 [Last Taken Unknown ] Nicotine [Nicoderm Cq 14 mg (*)] 14 mg TD DAILY 05/02/17 [Last Taken Unknown] Ondansetron Odt [Zofran Odt 4 mg (*)] 4 mg PO Q4H PRN 05/02/17 [Last Taken Unknown] Perforomist 2 ml NEB BID 05/02/17 [Last Taken Unknown] Potassium Chloride [Klor-Con M20] 20 meq PO DAILY 05/02/17 [Last Taken Unknown] Rivaroxaban [Xarelto 10mg (*)] 10 mg PO DAILY 05/02/17 [Last Taken Unknown] fentaNYL [Duragesic 25 MCG Patch (*)] 25 mcg TD Q72H 05/02/17 [Last Taken Unknown] levOFLOXACIN [levAQUIN (*)] 750 mg PO DAILY #1 tab 05/05/17 [Last Taken Unknown] predniSONE 40 mg PO DAILY #0 tablet 05/05/17 [Last Taken Unknown] Nursing Home Antibiotics: levaquin, stop after dose on 05/06; also stop prednisone after 05/06 dose Discharge Medications: Refer to the Discharge Home Medication list for PRN reason. - Orders Services needed: Registered Nurse, Certified Senior Contracts Administrator, Physical Therapy, Occupational Therapy Diet Recommendation: no restrictions on diet Diet Texture: Regular Texture Diet, Thin Liquids, Meds Whole w/Liquids - Follow Up Care Current Providers and Referrals: Patient,NotPresent [Unknown] - As per Instructions
--- NOTE | 2017-05-05 12:31 | PDIAF ---
- Diagnosis Diagnosis: pneumonia Code Status: Limited Resuscitation - Medication Management Discharge Medications: Medications to Continue on Transfer Acetaminophen [Tylenol ES 500 mg (*)] 1,000 mg PO Q8H PRN 05/02/17 [Last Taken Unknown] Atorvastatin Calcium [Lipitor 20 mg (*)] 20 mg PO DAILY 05/02/17 [Last Taken Unknown] Budesonide [Budesonide 0.5MG/2Ml Neb (*)] 0.5 mg IH BID 05/02/17 [Last Taken Unknown] Clopidogrel Bisulfate [Plavix (*)] 75 mg PO DAILY 05/02/17 [Last Taken Unknown] Escitalopram Oxalate [Lexapro] 20 mg PO DAILY 05/02/17 [Last Taken Unknown] Formoterol Fumarate 05/02/17 [Last Taken Unknown] Hydrocodone/Acetaminophen [Marland 5/325 (*)] 1 each PO Q4 PRN 05/02/17 [Last Taken Unknown] Ipratropium/Albuterol [Duoneb (*)] 3 ml IH Q4H PRN 05/02/17 [Last Taken Unknown] Ipratropium/Albuterol [Duoneb (*)] 3 ml IH Q6H 05/02/17 [Last Taken Unknown] LORazepam [Ativan (*)] 0.5 mg PO BID 05/02/17 [Last Taken Unknown] LORazepam [Ativan (*)] 0.5 mg PO BID PRN 05/02/17 [Last Taken Unknown] LORazepam [Ativan (*)] 0.5 mg PO DAILY 05/02/17 [Last Taken 05/01/17] Miconazole Nitrate [Zeasorb-AF Powder] 1 aretha TP BID 05/02/17 [Last Taken Unknown ] Nicotine [Nicoderm Cq 14 mg (*)] 14 mg TD DAILY 05/02/17 [Last Taken Unknown] Ondansetron Odt [Zofran Odt 4 mg (*)] 4 mg PO Q4H PRN 05/02/17 [Last Taken Unknown] Perforomist 2 ml NEB BID 05/02/17 [Last Taken Unknown] Potassium Chloride [Klor-Con M20] 20 meq PO DAILY 05/02/17 [Last Taken Unknown] Rivaroxaban [Xarelto 10mg (*)] 10 mg PO DAILY 05/02/17 [Last Taken Unknown] fentaNYL [Duragesic 25 MCG Patch (*)] 25 mcg TD Q72H 05/02/17 [Last Taken Unknown] OLANZapine DISINTEGR [ZyPREXA ZYDIS (*)] 2.5 mg PO HS #30 tab 05/05/17 [Last Taken Unknown] levOFLOXACIN [levAQUIN (*)] 750 mg PO DAILY #1 tab 05/05/17 [Last Taken Unknown] predniSONE 40 mg PO DAILY #0 tablet 05/05/17 [Last Taken Unknown] Line Supply Antibiotics: levaquin, stop after dose on 05/06; also stop prednisone after 05/06 dose Discharge Medications: Refer to the Discharge Home Medication list for PRN reason. - Orders Services needed: Registered Nurse, Certified Warehouse Director, Physical Therapy, Occupational Therapy Oxygen: 2L Diet Recommendation: no restrictions on diet Diet Texture: Regular Texture Diet, Thin Liquids, Meds Whole w/Liquids - Follow Up Care Current Providers and Referrals: Patient,NotPresent [Unknown] - As per Instructions
--- NOTE | 2017-05-05 12:56 | GDS ---
[f rep st] DISCHARGE SUMMARY ALL DIAGNOSES: 1. Acute on chronic respiratory failure. 2. Community-acquired pneumonia. 3. Suspected cancer. 4. Anxiety and depression with visual hallucinations. 5. Coronary artery disease with a recent myocardial infarction that was not amenable to intervention . 6. Pain control. 7. Morbid obesity. 8. History of a cerebrovascular accident. ALL IMPORTANT STUDIES: 1. CT of the abdomen showing an exophytic renal region, adrenal gland hyperplasia, 2 discrete liver lesions, possible metastatic lesions in T12, L1, and L3. 2. CT angio of the chest and thorax showing left upper and lower lobe pneumonia, questionable mass i n the right lung base, which could be malignancy versus ABPA, severe underlying bronchitis, no PE. HOSPITAL COURSE: 1. Pneumonia, causing acute on chronic hypoxic respiratory failure: This is significantly improved. She is currently saturating very well on nasal cannula 4-5 L. Her baseline had previously been 2 L . She has received Levaquin, as well as prednisone. Her breathing does feel much better, and she lo oks much more comfortable breathing. Her white count is decreased from 15 down to 10. 2. Anxiety/depression/visual hallucinations: She has many reasons for this. She is on Ativan, whic h I think is necessary given her severe anxiety to continue, even though this can clearly exacerbate the situation. I think this is situational. It may be related to her depression as well. I have st arted Zyprexa 2.5 mg to be taken at night on discharge. 3. Suspected cancer: She does not have a tissue diagnosis, has refused further workup. I agree wit h ongoing comfort care measures for her as she would not really want any treatment. She declined bro nchoscopy or other biopsy while she is here. She will be discharged to [facility] with focus on comf ort care at this point. Should she choose further workup, this will always be available. I discusse d this with both her and her son. 4. Coronary artery disease: She had a recent [place] that was not amenable to intervention. She is on P lavix and atorvastatin. Will continue these. 5. Cerebrovascular accident: Plavix and statin as above. 6. Deep vein thrombosis prophylaxis: She was on Xarelto at [facility]. I have recommended continui ng this. 7. Would recommend stopping Levaquin, as well as prednisone after her dose on 05/06. BILLING: I spent more than 30 minutes on the day of discharge coordinating care. /[id number]/MODL
[2017-05-05 15:16] VITALS: BP 153/98; PULSE 80; RESP 17; TEMP 98.8; O2SAT 96
[2017-05-05] MEDS: LORazepam 0.5 MG TAB PO PRN (16:06)
--- NOTE | 2017-05-05 16:26 | ASDISCHSUM ---
Discharge Information Plan Status:SNF Medically Cleared to Leave:05/04/2017 Discharge Date:05/05/2017 04:22 PM D/C [facility] ADT D/C [facility] Projected Discharge Date:05/04/2017 11:00 AM Transportation at D/C:Wheelchair Van Discharge Delay Reason: Follow-Up Date:05/04/2017 11:00 AM Discharge Slot: Final Diagnosis: Placement Information Referral Type:*Hospice Referral ID:[id number] Provider Name: Address 1: Phone Number: Address 2: Fax Number: City: Selection Factors: State: Referral Type:*Retirement/SNF Referral ID:[id number] Provider Name:[facility] Address 1:[address] Address 2: City:[place] Selection Factors: State:[place] Patient Contact Information Contact Name:KLEBER Relationship:Son Address:[address] [place] Alternate Phone: [facility]/Zip Code:[place] [address] Email: Financial Information Financial Class: Primary Plan Desc:[facility] Primary Plan Number:[id number] Secondary Plan Desc: Secondary Plan Number: Assessment Information [facility] CM Progress Note CM Note CM Note Notes: Pt admitted from [facility] and told MD that she does not want to return there. Pt also had appt with [facility] on Thursday at [facility]. Bartolome asked that appt be changed to [facility]. Call placed and they will reach out to case mgmt on Thursday. Attempted to discuss DC options with pt who stated it was not a good time and she did not want family contacted yet either. C/M will continue to follow. Date Signed: 05/02/2017 03:55 PM Electronically Signed By:Padma Allan LCSW [facility] Progress Note CM Note CM Note Notes: Reviewed chart, spoke w/ SALLY Johnson regarding discharge plan, pt's progress. Per Dr. Dan, pt's Stage IV lung ca diagnosis remains unclear at this time; pt to have pulmonary consult and bronch on Thu05/04/17. Met w/ pt and family to discuss discharge plan. Pt adamant that she will not return to [facility]. Attempted to clarify pt's concerns w/ [facility], pt unwilling to discuss. Options for [facility], [place], and [facility] in [place] presented. Pt's family is hoping for her to d/c to [place], where they live. Pt not previously open to [place]; asking for other options. Talked at length w/ pt and family about concerns w/ LTC and Medicaid, as well as pending disability application. Met privately w/ pt's son and xcxui-co-ail - both of whom feel pt was likely "delusional while at [facility]." They report the pt thought the staff at [facility] "was pouring blood all over her food before serving it to her." They believe the pt is not willing to return d/t delusions. [facility] jxzdc[facility]ta[facility]m [facility] and are willing for her to return there, if she is agreeable. Call placed to Didi at [facility] to discuss options. Didi to inquire about 30 day LTC requirement w/ Medicaid and options for going to a different facility. Didi to also inquire about disability application. Referral sent to [facility], per Didi's request, for updates. Unable to obtain any answers today. Update provided to pt's son Duane . Pt is currently scheduled for a hospice eval w/ [facility] on Thu05/04/17; CM to cancel if necessary, pending discussion w/ . CM will cont to follow. Current Discharge Plan: TBD Date Signed: 05/03/2017 06:03 PM Electronically Signed By:Nidia Olson RN [facility] CM Progress Note CM Note CM Note Notes: 05/04/2017 Case Management Note Met w/Didi Huggins and Duc from [facility], pt and pt tj Zepeda. Discussed pt concerns with recent stay at [facility]. [facility] agreed to switch rooms when pt returns. Tj Zepeda expressed concerns re: hallucinations/dellusions that occurred for Mom while at [facility]. Pt states she is having some hallucinations here at [facility] but is able to discern that they are not real whereas at [facility] she was unable to differentiate between reality and hallucinations. Due to Medicaid status, per Didi if pt refuses to return to [facility], pt will be financially responsible for previous stay out of pocket. Didi to inform son and pt of number of days and cost of previous pt stay at [facility]. Requested Behavioral Health Consult and notified RN and of pt statements. Left for Annabella Rodriguez. Case Management d/c poc: return to [facility]. Case Management to follow. Date Signed: 05/04/2017 02:45 PM Electronically Signed By:Dara Slaughter RN [facility] CM Progress Note CM Note CM Note Notes: 05/04/2017 Case Management Note Pt declined bronchoscopy today. Prior to admission, Pt had prescheduled hospice meeting planned for today arranged by [facility]. Bakari from [facility] met with pt and son this afternoon at 1500. Pt requested hospice and Bakari completed all paperwork. [facility] to take pt with [facility] support. Case Management to follow. Date Signed: 05/04/2017 04:44 PM Electronically Signed By:Dara Slaughter RN Case Management Discharge Plan Note Case Management Discharge Discharge Order Complete? Answers: Yes Patient to Obtain Answers: Other Notes: [facility] Transportation Arranged Answers: Other Notes: wheel chair transport with O2 arranged by [facility] will Pick (Date 05/05/2017 04:00 PM & Time) Faxed Final Orders Answers: Yes Agency/Facility Transfer Answers: Yes Report Printed & Faxed to Receiving Agency Family Notified Answers: Yes Notes: Son in room Discharge Comments Notes: Alerted [facility] that hospice/palliative follow up to happen through [facility] MD as process started prior to admission. [facility] agreed to shift rooms for pt. Conveyed information from Annabella mac verbally to [facility]. RN to call report. Faxed final orders. Date Signed: 05/05/2017 04:25 PM Electronically Signed By:Dara Slaughter RN Intervention Information
== END 2017-05-05 16:22 | DRG 193 ==
LOC: EDUNIT# → EEVIPCON 02:26 → F2W 04:14
PROVIDERS: ADMIT Family Medicine; ATTEND Family Medicine
DX: J18.9 Pneumonia, unspecified organism (principal); J96.21 Acute and chronic respiratory failure with hypoxia; J44.1 Chronic obstructive pulmonary disease with (acute) exacerbation; I25.10 Atherosclerotic heart disease of native coronary artery without angina pectoris; F41.9 Anxiety disorder, unspecified; F32.9 Major depressive disorder, single episode, unspecified; R44.1 Visual hallucinations; I25.2 Old myocardial infarction; E27.9 Disorder of adrenal gland, unspecified; K76.9 Liver disease, unspecified; R91.8 Other nonspecific abnormal finding of lung field; E66.01 Morbid (severe) obesity due to excess calories; Z68.36 Body mass index [BMI] 36.0-36.9, adult; E87.5 Hyperkalemia; Z79.01 Long term (current) use of anticoagulants; Z79.02 Long term (current) use of antithrombotics/antiplatelets; Z99.81 Dependence on supplemental oxygen; Z66 Do not resuscitate; Z87.891 Personal history of nicotine dependence
CPT/HCPCS: 92507-GN; 92523-GN; 92610-GN; 96365; 97116-GP; 97162-GP; 97166-GO; 97535-GO; J0171; J1650; J1956; J2930; J7626; Q9967